=== PATIENT | female | born 1940 | race Caucasian/White ===

== ENCOUNTER 2018-05-04 06:19 | Day surgery (SDC) | payer OTHER ==
[2018-05-04] MEDS ORDERED: FENTAnyl 50 MCG/ML VIAL (07:37)
[2018-05-04] MEDS ORDERED: PROPOFOL 20 ML (07:37)
== END 2018-05-04 13:56 | disposition home or self-care (01) ==
LOC: GIL 06:19
DX: K92.1 Melena (principal); K57.90 Diverticulosis of intestine, part unspecified, without perforation or abscess without bleeding; K64.8 Other hemorrhoids; I10 Essential (primary) hypertension
CPT/HCPCS: 45378

== ENCOUNTER 2019-02-01 05:56 | Day surgery (SDC) | payer MEDICARE, OTHER ==
[2019-02-01] MEDS ORDERED: PROPOFOL 100 ML (07:24)
[2019-02-01] MEDS ORDERED: LIDOCAINE 2% (SDV) 5 ML INJ (07:26)
[2019-02-01] MEDS ORDERED: FENTAnyl 50 MCG/ML VIAL (07:26)
[2019-02-01] MEDS ORDERED: LACTATED RINGER'S 1,000 ML IV (08:00)
[2019-02-01] MEDS: BUPIVACAINE 0.5% (SDV) 30 ML INJ (08:36)
[2019-02-01] MEDS: LIDOCAINE 2% (MDV) 20 ML INJ (08:40)
[2019-02-01] MEDS ORDERED: CEFAZOLIN 1 GM INJ (08:56)
[2019-02-01] MEDS ORDERED: LABETALOL HCL 20MG INJ IV (09:00)
[2019-02-01] MEDS ORDERED: DIPHENHYDRAMINE 50 MG INJ IV (09:00)
[2019-02-01] MEDS ORDERED: hydrALAzine 20 MG INJ IV (09:00)
[2019-02-01] MEDS ORDERED: KETOROLAC 30 MG INJ IV (09:00)
[2019-02-01] MEDS ORDERED: FENTAnyl 50 MCG/ML VIAL IV ×3 (09:00)
[2019-02-01] MEDS ORDERED: ONDANSETRON 4 MG INJ IV (09:00)
[2019-02-01] MEDS ORDERED: ALBUTEROL 0.083% (NEB) 2.5 MG/3 ML AMP HHN (09:00)
[2019-02-01] MEDS ORDERED: EPHEDrine 25 MG/5 ML SYG IV (09:00)
[2019-02-01] MEDS ORDERED: MEPERIDINE 25 MG INJ IV (09:00)
[2019-02-01] MEDS ORDERED: OXYCODONE/ACETAMINOPHEN (5/325) TAB PO ×2 (09:00)
[2019-02-01] MEDS: DEXAMETHASONE 4 MG/ML 1 ML INJ (09:03)
[2019-02-01] MEDS ORDERED: HYDROCODONE/APAP (10/325) TAB PO (09:30)
== END 2019-02-01 10:41 | disposition home or self-care (01) ==
LOC: SDS 05:56
DX: M19.071 Primary osteoarthritis, right ankle and foot (principal); I10 Essential (primary) hypertension
CPT/HCPCS: 28291